=== PATIENT | female | born 1950 | race Native Hawaiian/Other Pacific Islander ===

== ENCOUNTER 2016-11-27 09:30 | Emergency (ER) | payer OTHER ==
[~2016-11-27] VITALS: Ht 165.1 cm; Wt 99.8 kg
[2016-11-27 10:26] LABS: PLATELET COUNT 393 K/uL (152-353)
== END 2016-11-27 11:09 | disposition home or self-care (01) ==
LOC: ED 09:30
DX: M54.5 Low back pain (principal); M51.27 Other intervertebral disc displacement, lumbosacral region
CPT/HCPCS: 81000; 85027; 96372; 99283; J1885; J2930